=== PATIENT | male | born 1985 | race Caucasian/White ===

== ENCOUNTER 2016-05-04 07:40 | Emergency (ER) | payer OTHER ==
[~2016-05-04 07:40] MED LIST: BACTRIM DS TABL1 TA1 PO; BENADRYL25 MG; IBUPROFEN800 MG PO; KEFLEX500 MG PO; MEDROL PO; MOBIC PO; NO MEDICATIONS; ROBAXIN500 MG PO; ZANTAC150 M1 PO
[2016-10-10] MEDS ORDERED: PRINIVIL20 M1 PO (09:27)
[2016-10-10] MEDS ORDERED: METOPROLOL SUCC25 MG PO (09:27)
== END 2016-05-04 07:50 | disposition home or self-care (01) ==
LOC: CED 07:40
DX: Z53.21 Procedure and treatment not carried out due to patient leaving prior to being seen by health care provider (principal)

== ENCOUNTER 2016-06-15 15:00 | Inpatient (IN) | payer OTHER ==
--- NOTE | ~2016-06-15 | HP ---
Unit #: [id number] #: [id number] Patient: IMELDA ROBLERO [id number] [facility] [address] [place] [address] [id number] MR#: [id number] NAME: IMELDA ROBLERO ROOM: P182 Age: 30 Sex: M Admission Date: 06/15/2016 : 1985 Attending Physician: Luis Fowler M.D. Admitting Physician: Luis Fowler M.D. Primary Care Physician: [facility] HISTORY AND PHYSICAL HISTORY OF PRESENT ILLNESS Imelda is a 30-year-old male admitted to [facility] on 06/15/2016. He left AMA prior to H and P being completed. Dictated by... Jaron Parikh/shalonda TD: 06/17/2016 08:47 JOB #: [id number] HISTORY AND PHYSICAL Page 1 of X YAMILKA EMERY APRN HISTORY AND PHYSICAL
--- NOTE | ~2016-06-15 | PA ---
Unit #: [id number] #: [id number] Patient: IMELDA LYNCH [id number] [facility] [address] [place] [address] [id number] MR#: [id number] NAME: IMELDA LYNCH. ROOM: P182 Age: 30 Sex: M Admission Date: 06/15/2016 : 1985 Date of Assessment: Attending Physician: Luis Fowler M.D. Admitting Physician: Luis Fowler M.D. Primary Care Physician: [facility] PSYCHIATRIC ASSESSMENT DATE OF ASSESSMENT 06/16/2016. INFORMANTS The patient considered reliable, [facility] records considered reliable. CHIEF COMPLAINT Drug and alcohol abuse. HISTORY OF PRESENT ILLNESS Mr. Lynch is a 30-year-old man who reports he has been using alcohol and drugs to excess, which has "destroyed my life." He has lost relationships and last week lost his job. His girlfriend also reported that it is essential that he make progress in order for their family to continue. He had no suicidal ideation, intent, or plan and was admitted for stabilization. PAST PSYCHIATRIC HISTORY One previous admission to this facility in 2010. He currently does not take psychiatric medications. FAMILY PSYCHIATRIC HISTORY The patient reports that his mother was an extensive drug user and his brother is an alcoholic. SOCIAL HISTORY The patient is single with an erratic long-term relationship, which is currently endangered by his drug use. He is temporarily employed with significant financial stress. He lost his job this week. PAST MEDICAL HISTORY No chronic medical problems. MEDICATIONS None currently. ALLERGIES No known medication allergies. SUBSTANCE USE HISTORY Please see previous assessments for the patient's extensive history of chemical dependence. Unit #: [id number] #: [id number] Patient: IMELDA LYNCH MENTAL STATUS EXAMINATION Imelda presented as a mildly disheveled man who appeared his stated age. He was cooperative with the examination. His speech was spontaneous and easily understood. Musculoskeletal examination was calm. His mood was irritable with a congruent affect. He was alert and fully oriented. Memory and concentration were fair to good. Thought processes were goal directed with no active psychosis. He denied suicidal ideation, intent, or plan. Insight and judgment, fair. Fund of knowledge and abstraction were fair. ASSETS AND LIABILITIES The patient knows local resources and presents voluntarily for treatment. Liabilities include difficulty maintaining sobriety and currently struggling relationship. ADMITTING DIAGNOSES AXIS I: Alcohol dependence with withdrawal, uncomplicated, F10.230; opioid abuse. AXIS II: No diagnosis. AXIS III: Polysubstance withdrawal. AXIS IV: AXIS V: PSYCHIATRIC PLAN The patient was admitted and placed on the alcohol detox protocol. Home medications will be explored and restarted. He will enroll in dual diagnosis groups and activities, and physical examination and laboratory studies will be ordered and reviewed. TREATMENT GOALS Resolution of intoxication, improvement in insight, and improvement in coping skills. DISCHARGE PLANNING Follow up with [facility] and community mental health resources. ESTIMATED LENGTH OF STAY 5 days. Dictated by... Luis Fowler M.D. BONITA/didier TD: 06/17/2016 01:59 JOB #: [id number] Unit #: [id number] #: [id number] Patient: OSBALDOIMELDA Figueroa PSYCHIATRIC ASSESSMENT Page 1 of 1 X Luis Fowler MD X PSYCHIATRIC ASSESSMENT
[2016-06-16 12:35] LABS: BASOPHIL% 0.5 % (0-2.5); EOSINOPHIL# 0.2 X10e3 (0-0.7); EOSINOPHIL% 2.1 % (0.0-7.0); HEMATOCRIT 47.2 % (38.0-50.0); HEMOGLOBIN 15.9 gm/dL (13.0-16.0); LYMPHOCYTE# 1.6 X10e3 (1.0-3.5); LYMPHOCYTE% 22.3 % (17.0-45.0); MEAN CELL VOLUME 90.4 FL (83-96); MEAN CORPUSCULAR HEMOGLOBIN 30.5 PG (28-34); MEAN CORPUSCULAR HGB CONC 33.7 g/dL (30-36); MEAN PLATELET VOLUME 9.4 FL (6.5-11.5); MONOCYTE# 0.5 X10e3 (0-1.0); MONOCYTE% 7.1 % (3.0-12.0); PLATELET COUNT 218 X10e3 (140-420); RED BLOOD COUNT 5.22 X10e (3.90-5.60); RED CELL DISTRIBUTION WIDTH 12.9 % (11.0-15.5); WHITE BLOOD COUNT 7.3 X10e3 (4.0-10.5)
[2016-06-16 12:40] LABS: DIFF IND NO
[2016-06-16 12:59] LABS: ALBUMIN SERUM 4.2 g/dL (3.5-5.0); CALCIUM SERUM 9.3 mg/dL (8.4-10.2); GLOM FILT RATE Estimated 99.2 mL/min (>60); POTASSIUM 4.3 mmol/L (3.5-5.1); PROTEIN TOTAL SERUM 7.3 g/dL (6.0-8.3)
[2016-10-10] MEDS ORDERED: METOPROLOL SUCC25 MG PO (09:27)
[2016-10-10] MEDS ORDERED: PRINIVIL20 M1 PO (09:27)
== END 2016-06-16 14:50 | disposition home or self-care (01) | DRG 897 ==
LOC: P1E 18:25
PROVIDERS: Psychiatry & Neurology Psychiatry
PROC: HZ2ZZZZ Detoxification Services for Substance Abuse Treatment (ICD-10-PCS; principal; 2016-06-15)
DX: F10.230 Alcohol dependence with withdrawal, uncomplicated (principal); F11.23 Opioid dependence with withdrawal; F10.239 Alcohol dependence with withdrawal, unspecified
CPT/HCPCS: 80053; 85025; 86592

== ENCOUNTER 2016-10-06 11:59 | Emergency (ER) | payer OTHER ==
[2016-10-10] MEDS ORDERED: PRINIVIL20 M1 PO (09:27)
[2016-10-10] MEDS ORDERED: METOPROLOL SUCC25 MG PO (09:27)
== END 2016-10-06 12:18 | disposition left against medical advice (07) ==
LOC: CED 11:59
DX: Z53.21 Procedure and treatment not carried out due to patient leaving prior to being seen by health care provider (principal)